=== PATIENT | male | born 1950 | race Caucasian/White ===

== ENCOUNTER → 2019-04-04 17:22 | Outpatient (CLI) | payer MEDICARE, SELFPAY ==
--- NOTE | 2019-04-04 17:22 | FLU_PTH ---
PATIENT: FAITH PIERRE LOC: [facility] U#:[id number] AGE/SX: 75/M ROOM: RE04/04/[address]: Dr. Willem Le MD : 1950 BED: DIS: SPEC #: [id number] RECD: 04/04/19 19:01 STATUS: SHELBY LYNN #: [id number] WILBUR: 04/04/19 17:[address]: Willem Le DEPT: CYTOLOGY RECD BY: Francisco Pat ENTERED: 04/05/19 10:14 SP TYPE: Fluid OTHR DR: Dr. Ryan Santana MD Tissues: Face, NOS Procedures: Special Stain Group II Surgery Specimen Level IV Cytospin Fluid HEADER OPERATION: Fine needle aspiration left facial mass PRE-OP DIAGNOSIS: Left facial mass; no history of lesions TISSUE SUBMITTED: Left facial mass DIAGNOSIS CYTOLOGY Left facial mass, FNA (cytospin and cell block): Acellular specimen. See comment. SJ:norm 04/08/19 COMMENT Biopsy or excision of the mass is suggested if clinically indicated. CYTOLOGY STUDY Slides are reviewed. CYTOLOGY GROSS Received is 40 ml of clear colorless fluid labeled with the patient's name and and designated per the requisition as left facial mass. Submitted for cytology preparation including cell block. / 04/05/19 TC: Rhona code CPT: 97192 , 13522
== END ==
PROVIDERS: Family Provider Family Medicine Geriatric Medicine; PCP Family Medicine Geriatric Medicine; Referring Provider Otolaryngology; Visit Provider Otolaryngology
DX: R22.0 Localized swelling, mass and lump, head (principal)
CPT/HCPCS: 88108; 88305; 88313

== ENCOUNTER → 2021-06-10 12:54 | Outpatient (CLI) | payer MEDICARE, SELFPAY ==
--- NOTE | 2021-06-10 12:59 | CT_ITS ---
INDICATION: PULMONARY FIBROSIS EXAMINATION: CT CHEST WITHOUT CONTRAST - CT Chest W/O Contrast Injection TECHNIQUE: Helically acquired images were obtained of the chest. A radiation dose optimization technique was used for this scan. IV Contrast dosage and agent: None. COMPARISON: None. FINDINGS: Prone helical CT through the chest with 1.25 mm axial reconstructions using lung algorithm and 2.5 mm coronal and sagittal reconstructions using lung algorithm. Additional axial 2.5 mm slice thickness soft tissue reconstructions also created. Peripheral reticular opacities are seen in both right and left upper and lower lobes. No honeycombing. No cystic changes. Minimal bronchiectasis. No significant groundglass attenuation. The nodule or airspace opacity. No pleural effusion or pneumothorax. Aneurysmal dilation ascending thoracic aorta measuring 5.0 x 5.3 cm. No fracture or focal osseous lesion. There does appear to be decreased bone mineral density. There are advanced degenerative changes bilateral glenohumeral joints and mid thoracic spine. Multiple bridging anterior osteophytes suggesting diffuse idiopathic skeletal hyperostosis. CT/Chest without Contrast IMPRESSION: Abnormal peripheral reticular opacities is nonspecific. Broad differential includes interstitial lung disease, nonspecific interstitial pneumonia and radiographic pulmonary fibrosis. Indeterminate appearance for usual interstitial pneumonia. 5.0 x 5.3 cm aneurysmal dilation ascending thoracic aorta. Electronically Signed: Parviz Bull DO at 23:08 EDT Tel , Service support ,
[2021-06-10 14:12] LABS: Erythrocyte Sedimentation Rate 20 mm/hr (0-20)
[2021-06-10 14:13] LABS: Hematocrit 39.5 % (40-54); Hemoglobin 13.2 g/dL (13.0-16.5); Mean Corp Hgb Conc 33.4 g/dL (32-36); Mean Corpuscular Hgb 32.4 pg (27.0-32.0); Mean Corpuscular Volume 96.8 fL (80-94); Mean Platelet Vol. 12.2 fl (6.2-12.0); Platelet Count 198 K/mm3 (150-450); RBC Distribution Width CV 14.9 % (11.6-14.6); RBC Distribution Width SD 52.8 fl (35.1-43.9); Red Blood Count 4.08 M/mm3 (4.6-6.2)
[2021-06-10 14:46] LABS: ALB/GLOB Ratio 0.9 RATIO (0.9-2.4); AST(SGOT) 23 U/L (15-37); Alanine Aminotransfer ALT/SGPT 32 U/L (16-61); Albumin, Serum 3.3 g/dL (3.2-5.0); Alkaline Phosphatase 84 U/L (45-117); Anion Gap 5 (5-15); BUN 22 mg/dL (7-18); BUN/Creat Ratio 21.2 RATIO (10-20); CRP 7.35 mg/L (0.0-3.0); Calcium,Total 8.7 mg/dL (8.5-10.1); Chloride 105 mmol/L (98-107); Creatinine, Serum 1.04 mg/dL (0.70-1.30); EST Glomerular Filtration Rate 75 mL/min (>60); Est Glom Filt Rate - Afr Amer 90 mL/min (>60); Globulin 3.7 g/dL (2.2-4.2); Glucose 106 mg/dL (74-106); Magnesium 2.1 mg/dL (1.6-2.6); Potassium 4.2 mmol/L (3.5-5.1); Sodium Level 138 mmol/L (136-145)
[2021-06-13 15:07] LABS: Anti-Scleroderma-70 AB <0.2 AI (0.0-0.9)
[2021-06-13 23:17] LABS: ANTINUCLEAR ANTIBODIES DIRECT Negative (Negative)
[2021-06-15 16:09] LABS: Angiotensin Convert Enzyme 38 U/L (14-82)
[2021-06-15 19:53] LABS: CCP IgG Antibodies 25 units (0-19); Perinuclear Ab (P-ANCA) <1:20 titer (Neg:<1:20)
== END ==
PROVIDERS: PCP Family Medicine Geriatric Medicine; Referring Provider Internal Medicine Pulmonary Disease; Visit Provider Internal Medicine Pulmonary Disease
DX: J84.10 Pulmonary fibrosis, unspecified (principal); R05.9 Cough, unspecified; I49.9 Cardiac arrhythmia, unspecified
CPT/HCPCS: 36415; 71250; 80053; 82164; 83735; 84443; 85027; 85652; 86038; 86140; 86200; 86235; 86256; 86431